=== PATIENT | female | born 1960 | race Caucasian/White ===

== ENCOUNTER → 2017-10-27 09:48 | Outpatient (CLI) | payer BC, SELFPAY ==
[2017-10-27 10:12] LABS: Basophils # 0.1 K/mm3 (0-0.2); Basophils % 1.4 % (0.1-2.0); Eosinophils # 0.2 K/mm3 (0.0-0.4); Eosinophils % 3.9 % (0.1-12.0); Hematocrit 42.8 % (37.0-47.0); Hemoglobin 14.1 g/dL (12.2-16.2); Lymphocytes # 1.7 K/mm3 (0.7-4.5); Lymphocytes % 39.1 K/mm3 (10-50); Mean Corpuscular HGB Conc 32.9 g/dL (31.8-35.4); Mean Corpuscular Hemoglobin 29.9 pg (27.0-31.2); Mean Platelet Volume 7.9 fl (7.4-10.4); Monocytes # 0.3 K/mm3 (0.1-1.0); Monocytes % 6.7 % (1.7-9.3); Neutrophils # 2.2 K/mm3 (1.8-7.8); Platelet Count 257 K/mm3 (142-424); Red Cell Distribution Width 12.4 % (11.5-17.5); White Blood Count 4.4 K/mm3 (4.8-10.8)
[2017-10-27 12:39] LABS: Alanine Aminotransferase 31 U/L (12-78); Albumin/Globulin Ratio 1.3 (1.1-1.8); Alkaline Phosphatase 59 U/L (46-116); Anion Gap 15.6 mEq/L (5-15); Aspartate Amino Transferase 15 U/L (15-37); Bilirubin,Total 0.4 mg/dL (0.2-1.0); Blood Urea Nitrogen 13 mg/dL (7-18); Calcium 9.3 mg/dL (8.5-10.1); Carbon Dioxide 25 mmol/L (21.0-32.0); Chloride 106 mmol/L (98-107); Chol/HDL Ratio 3.4 (1-3.5); Cholesterol 200 mg/dL (140-200); Creatinine,Serum 0.66 mg/dL (0.55-1.02); Estimated Glomerular Filt Rate 92 ml/min (>60); GFR (African American) 112 ML/MIN (>60); Globulin 3.1 gm/dl (1.3-3.2); Glucose 99 mg/dL (74-106); HDL Cholesterol 58 mg/dL (29-89); LDL Cholesterol 128 mg/dL (0-130); Potassium 4.6 mmoL/L (3.5-5.1); Sodium 142 mmol/L (136-145); Thyroid Stimulating Hormone 2.82 uIU/ml (0.358-3.740); Total Protein,Serum 7.1 gm/dL (6.4-8.2); Triglycerides 69 mg/dL (30-200); VLDL Cholesterol 14 mg/dL (0-40)
[2017-10-28 17:10] LABS: Vitamin D 25 Hydroxy 46.8 ng/mL (30.0-100.0)
== END ==
PROVIDERS: PCP Internal Medicine Adolescent Medicine; Visit Provider Obstetrics & Gynecology Gynecology
DX: N95.1 Menopausal and female climacteric states (principal)
CPT/HCPCS: 36415; 80053; 80061; 82652; 84443; 85025

== ENCOUNTER → 2020-12-08 09:56 | Outpatient (CLI) | payer BC, SELFPAY ==
[2020-12-08 10:31] LABS: Basophils # 0.1 K/mm3 (0-0.2); Basophils % 1.3 % (0.1-2.0); Eosinophils # 0.3 K/mm3 (0.0-0.4); Eosinophils % 4.4 % (0.1-12.0); Hematocrit 42.3 % (37.0-47.0); Hemoglobin 13.6 g/dL (12.2-16.2); Lymphocytes # 1.9 K/mm3 (0.7-4.5); Lymphocytes % 34.5 % (10-50); Mean Corpuscular HGB Conc 32.2 g/dL (31.8-35.4); Mean Corpuscular Hemoglobin 29.9 pg (27.0-31.2); Mean Corpuscular Volume 93.1 fl (81-99); Mean Platelet Volume 7.9 fl (7.4-10.4); Monocytes # 0.4 K/mm3 (0.1-1.0); Monocytes % 6.9 % (1.7-9.3); Neutrophils % 52.8 % (37.0-80.0); Platelet Count 266 K/mm3 (142-424); Red Blood Count 4.54 M/mm3 (4.20-5.40); White Blood Count 5.6 K/mm3 (4.8-10.8)
--- NOTE | 2020-12-08 10:31 | ECG_ITS ---
APPROVED REPORT Exam: Resting ECG HR:67 bpm ECG Measurements Heart Rate 67 AXES CA 142 P 32 QRSd 88 QRS 44 QT 426 T 23 QTc 450 Conclusion Normal sinus rhythm Normal ECG Electronically signed by : Marvin Olson, 12/08/2020 17:20:25
[2020-12-08 11:11] LABS: Chloride 110 mmol/L (98-107)
[2020-12-08 11:12] LABS: Sodium 141 mmol/L (136-145)
[2020-12-08 11:14] LABS: Alanine Aminotransferase 17 U/L (12-78); Aspartate Amino Transferase 23 U/L (14-36); Bilirubin,Total 0.6 mg/dl (0.2-1.3); Blood Urea Nitrogen 18 mg/dl (7-17); Estimated Glomerular Filt Rate 102 ml/min (>60); GFR (African American) 123 ML/MIN (>60)
[2020-12-08 11:15] LABS: Albumin Level 4.5 g/dl (3.5-5.0); Albumin/Globulin Ratio 1.7 (1.1-1.8); Alkaline Phosphatase 72 U/L (38-126); Calcium 9.9 mg/dl (8.4-10.2); Carbon Dioxide 25 mmol/L (22.0-30.0); Globulin 2.7 g/dL (1.3-3.2); Glucose 102 mg/dl (74-100); Total Protein,Serum 7.2 g/dl (6.3-8.2)
== END ==
PROVIDERS: PCP Internal Medicine Adolescent Medicine; Visit Provider Orthopaedic Surgery
DX: Z01.818 Encounter for other preprocedural examination (principal); M25.562 Pain in left knee
CPT/HCPCS: 36415; 80053; 85025; 93005

== ENCOUNTER 2021-08-12 10:00 | Outpatient (RCR) | payer BC, SELFPAY | END 2021-08-12 10:05 | disposition home or self-care (01) | LOC: PT 10:00 | PROVIDERS: PCP Internal Medicine Adolescent Medicine; Visit Provider Nurse Practitioner Family | DX: M67.88 Other specified disorders of synovium and tendon, other site (principal) | CPT/HCPCS: 20560; 97010; 97014; 97033; 97035; 97110; 97140; 97163; 97164; G0283 ==

== ENCOUNTER → 2021-10-02 11:32 | Outpatient (CLI) | payer BC, SELFPAY ==
[2021-10-02 13:23] LABS: Blood Urea Nitrogen 16 mg/dl (7-17); Estimated Glomerular Filt Rate 85 ml/min (>60); GFR (African American) 103 ML/MIN (>60)
== END ==
PROVIDERS: PCP Internal Medicine Adolescent Medicine; Visit Provider Podiatrist
DX: Z01.812 Encounter for preprocedural laboratory examination (principal); M76.61 Achilles tendinitis, right leg
CPT/HCPCS: 36415; 82565; 84520

== ENCOUNTER → 2021-10-05 08:25 | Outpatient (CLI) | payer BC, SELFPAY ==
--- NOTE | 2021-10-05 08:25 | MR_ITS ---
FINAL REPORT CLINICAL HISTORY: right achilles tendinitis. swelling in posteior ankle. no injury or trauma. 16ml prohance given. FINDINGS: Multiplanar MR imaging of the right ankle was performed with and without contrast. There is a small osteochondral lesion in the medial talar dome measuring 2 mm. The ligaments are intact without evidence of injury. There is mild peroneus longus and peroneus brevis tenosynovitis. There is distal Achilles tendinitis, peritendinitis with moderate partial tears at the insertion. The posterior plantar aponeurosis is intact. No significant joint effusion is seen. The musculature is intact. There is no evidence of soft tissue mass or cyst. There is contrast enhancement of the distal Achilles tendon and the surrounding soft tissues. There is fluid in the retrocalcaneal bursa consistent with retrocalcaneal bursitis. IMPRESSION: Distal Achilles tendonitis and peritonitis with moderate partial tears and associated contrast enhancement. Retrocalcaneal bursitis. Mild peroneus longus and peroneus brevis tenosynovitis. Small osteochondral lesion in the medial talar dome. Reviewed, Interpreted and Dictated by Jasper Galarza III, MD Transcribed by Sarkis Orozco Authenticated by Jasper Galarza III, MD on 10/05/2021 10:43:33 AM [facility]
== END ==
PROVIDERS: PCP Internal Medicine Adolescent Medicine; Visit Provider Podiatrist
DX: M76.61 Achilles tendinitis, right leg (principal); M67.88 Other specified disorders of synovium and tendon, other site; M77.51 Other enthesopathy of right foot and ankle
CPT/HCPCS: 73723; A9576

== ENCOUNTER 2023-05-12 11:00 | Outpatient (RCR) | payer BC, SELFPAY | END 2023-05-12 11:05 | disposition home or self-care (01) | LOC: PT 11:00 | PROVIDERS: PCP Internal Medicine Adolescent Medicine; Visit Provider Orthopaedic Surgery | DX: M25.562 Pain in left knee (principal); Z96.652 Presence of left artificial knee joint | CPT/HCPCS: 97010; 97014; 97016; 97110; 97140; 97163; 97164; 97530; 97760; G0283 ==

== ENCOUNTER 2024-04-18 10:00 | Outpatient (RCR) | payer BC, SELFPAY | END 2024-04-18 10:05 | disposition home or self-care (01) | LOC: PT 10:00 | PROVIDERS: Visit Provider Specialist/Technologist Athletic Trainer | DX: M43.16 Spondylolisthesis, lumbar region (principal) | CPT/HCPCS: 97163 ==

== ENCOUNTER 2024-09-28 13:48 | Emergency (ER) | payer BC, SELFPAY ==
[2024-09-28 14:00] VITALS: BP 152/89; PULSE 86; RESP 18; TEMP 36.4; O2SAT 97; BMI 27.4
--- NOTE | 2024-09-28 14:06 | ED_ITS ---
Discharge Plan Disposition Patient Disposition: Home, Self-Care Condition: Good Prescriptions Prescriptions: New azithromycin [Zithromax] 250 mg tablet 250 mg PO UD DOSE PK Qty: 6 0RF Rx Instructions: Take two (2) tablets today, then one (1) tablet days #2 thru #5 methylprednisolone 4 mg Tablets,Dose Pack 4 mg PO DIRECTED 6 Days Qty: 21 0RF Rx Instructions: Take 1 pack as directed for 6 days meclizine 25 mg tablet 25 mg PO Q6HP PRN (Reason: dizziness) Qty: 30 0RF No Action citalopram 20 mg tablet 20 mg PO meloxicam 7.5 mg tablet 7.5 mg PO DAILY 30 Days Qty: 30 1RF Referrals Follow up/Referrals: Manda Belcher MD [Primary Care Provider] - See instructions Activity Restrictions/Add. Instructions Additional Instructions/Restrictions: Drink plenty of fluids. Take tylenol for pain or fever. Take the medications as directed. The meclizine (antivert) will make you drowsy, so don't drive or operate heavy machinery after taking it. Follow up with your regular doctor. GO TO THE ER FOR ANY WORSENING SYMPTOMS Read over the teaching sheet we gave you regarding the Douglas Maneuvers. Please perform these maneuvers three times per day until your syptoms resolve or you are told different by your primary care provider. Clinical Impressions Clinical Impression: Benign paroxysmal positional vertigo, Otitis media Instructions Patient Instructions: Middle Ear Infection, Benign Paroxysmal Positional Vertigo, Meclizine, Methylprednisolone, Azithromycin Print Language Print Language: Wolof Discharge ED Provider: Rodolfo Dixon [facility] General Stated complaint: balace issue and dizziness Time Seen by Provider: 09/28/24 14:06 History of Present Illness Provider Complaint: She states that for the past 1 day she has had episodes of dizziness and vertigo. Her symptoms are worse in the morning when she first wakes up and sits up. Her symptoms have also been triggered when she turns her head to right at times. She denies any ear pain and pressure. Related Data Home Medications ?Medication ?Instructions ?Recorded ?Confirmed citalopram 20 mg tablet 20 mg PO 09/01/21 11/30/21 Previous Rx's ?Medication ?Instructions ?Recorded meloxicam 7.5 mg tablet 7.5 mg PO DAILY pain 30 days #30 07/08/22 tabs azithromycin 250 mg tablet 250 mg PO UD DOSE PK #6 tabs 09/28/24 (Zithromax) meclizine 25 mg tablet 25 mg PO Q6HP PRN dizziness #30 09/28/24 tabs methylprednisolone 4 mg tablets in 4 mg PO DIRECTED 6 days #21 tabs 09/28/24 a dose pack Allergies Allergy/AdvReac Type Severity Reaction Status Date / Time No Known Allergies Allergy Verified 09/28/24 14:16 [facility] Disclaimer: The information contained in this section may have been updated after the patient was seen, as this information can be updated by other users. Surgical History (Updated 09/28/24 @ 14:16 by Mayte Lange RN) History of tubal ligation History of hysterectomy History of cholecystectomy Social History Smoking Status: Never smoker alcohol intake: current alcohol intake frequency: holidays/special occasions only current occupational status: retired Travel in the last 8 weeks: None Have you lived/traveled outside [place] in past 30 days?: No Contact w/someone who lives/traveled outside [place] past 30 days?: No Exposure to someone with infectious disease in past 14 days?: No Do you have a fever (greater than 100.4 F or 38 C)?: No Have you tested positive for COVID-19: No Exposed to someone with COVID-19 in past 14 days?: No Do you have a sore throat?: No Do you have a cough?: No Do you have any weakness?: No Do you have any diarrhea?: No Are you experiencing any unusual bleeding?: No Do you have any muscle aches/pain?: No Do you have any abdominal pain?: No Are you experiencing loss of taste or smell?: No ROS Obtained: Yes All systems reviewed & no additional complaints except as documented Constitutional Constitutional: Denies chills, Denies fever(s), Denies headache(s) and Denies weakness Eyes Eyes: Denies eye discharge and Denies loss of vision ENT Ears, Nose, Mouth, and Throat: Denies abnormal hearing, Denies disequilibrium, Denies dizziness, Denies otalgia, Denies headache(s), Denies neck pain, Denies sore throat and Reports vertigo Cardiovascular Cardiovascular: Denies chest pain, Denies chest pain at rest, Denies chest pain with activity, Denies diaphoresis, Denies dyspnea, Denies dyspnea on exertion, Denies lightheadedness, Denies palpitations, Denies pedal edema, Denies rapid heart rate and Denies syncope Respiratory Respiratory: Denies shortness of breath, Denies chest congestion, Denies cough, Denies dyspnea, Denies dyspnea on exertion, Denies stridor and Denies wheezing Gastrointestinal Gastrointestingal: Reports nausea; Denies abdominal pain, constipation, cramping, diarrhea or vomiting Genitourinary Female Genitourinary: Denies dysuria, Denies urinary frequency, Denies urinary incontinence, Denies urinary hesitancy and Denies urinary urgency Musculoskeletal Musculoskeletal: Reports system reviewed and no additional complaints, except as documented, Denies abnormal gait, Denies arthralgias, Denies back pain, Denies neck pain and Denies numbness Integumentary/Breasts Skin/Breast: Denies rash Neurologic Neurologic: Reports as per HPI, Denies abnormal gait, Denies abnormal hearing, Denies confusion, Denies convulsions, Denies disequilibrium, Denies dizziness, Denies focal weakness, Denies headache(s), Denies loss of vision, Denies memory loss, Denies numbness, Denies other visual disturbances, Denies paresthesias, Denies radicular pain, Denies seizure-like activity, Denies sensory deficit, Denies syncope, Denies tremor(s), Reports vertigo and Denies weakness Endocrine Endocrine: Denies palpitations Allergic/Immunologic Allergic/Immunologic: Denies wheezing Physical Exam General General appearance: alert and in no apparent distress Head Head exam: atraumatic, normocephalic and normal inspection Eye Eye exam: Present normal appearance; Absent PERRL or EOMI ENT ENT exam: Present mucous membranes moist and normal external ear exam Expanded ENT Exam TM/Canal exam: Bilateral TM: erythema, bulging and effusion Nose exam: Absent sinus tenderness Nasal speculum exam: Bilateral: normal Mouth exam: Present normal external inspection and other; Absent drooling Teeth exam: Present normal inspection Throat exam: Present tonsillar erythema and tonsillomegaly Neck Neck exam: Present normal inspection, full ROM and trachea midline; Absent tenderness, meningismus or lymphadenopathy Chest Chest inspection: Present normal inspection and symmetric chest wall rise; Absent tenderness Respiratory Respiratory exam: Present normal lung sounds bilaterally; Absent respiratory distress, wheezes or stridor Cardiovascular Cardiovascular exam: Present regular rate, normal rhythm and normal heart s ounds; Absent tachycardia or irregular rhythm Abdominal Exam Abdominal exam: Present soft and normal bowel sounds; Absent distention, tenderness, guarding, rebound or rigidity Extremities Exam Extremities exam: Present normal inspection and normal capillary refill; Absent tenderness, joint swelling or calf tenderness Back Exam Back exam: Present normal inspection and full ROM; Absent tenderness, CVA tenderness (R) or CVA tenderness (L) Neurological Exam Neurological exam: Present alert, oriented X3, CN II-XII intact, normal gait and reflexes normal; Absent motor sensory deficit Psychiatric Psychiatric exam: Present normal affect and normal mood Skin Skin exam: Present warm, dry, intact and normal color Lymphatic Lymphatic Findings: no adenopathy Medical Decision Making Medical Records Medical records reviewed: No I reviewed the patient's medical records. Screening: Per USPSTF and CDC recommendations, given the prevalence of disease in our region, it is our hospital?s policy to screen for HIV and viral Hepatitis for all patients aged 18 and over and those with ongoing risk factors. Jesse Inquiry Pt receiving controlled substance: No Medical Decision Narrative: She had a very positive result to trini-hallpike maneuvers when turning her head to the right. She had no reaction when turning her head to the left.
[2024-09-28 14:38] VITALS: BP 139/92; BP 152/89; PULSE 85; PULSE 86
[2024-09-28 15:00] VITALS: BP 152/89; PULSE 86; RESP 18; TEMP 36.4; O2SAT 97
== END 2024-09-28 15:02 | disposition home or self-care (01) ==
PROVIDERS: Emergency Provider Nurse Practitioner Family; PCP Internal Medicine
DX: H65.93 Unspecified nonsuppurative otitis media, bilateral (principal); H81.11 Benign paroxysmal vertigo, right ear
CPT/HCPCS: 99212; G0381